=== PATIENT | male | born 1980 | race Caucasian/White ===

== ENCOUNTER 2018-03-06 11:05 | Outpatient (CLI) | payer OTHER | END 2018-03-06 11:10 | disposition home or self-care (01) | LOC: LAB 11:05 | DX: R73.09 Other abnormal glucose (principal); N40.0 Benign prostatic hyperplasia without lower urinary tract symptoms; I10 Essential (primary) hypertension; E03.8 Other specified hypothyroidism; E78.2 Mixed hyperlipidemia; E55.9 Vitamin D deficiency, unspecified; I11.9 Hypertensive heart disease without heart failure; D64.89 Other specified anemias ==